=== PATIENT | female | born 1990 | race Caucasian/White ===

== ENCOUNTER 2018-10-04 13:34 | Emergency (ER) | payer BC, SELFPAY ==
[2018-10-04] MEDS ORDERED: FAMOTIDINE 20 MG/2 ML VIAL IV ONE (14:24)
[2018-10-04] MEDS ORDERED: MAGNE/ALUM HYDROXD 30 ML UCUP ONE (14:24)
[2018-10-04] MEDS ORDERED: ONDANSETRON 4 MG/2 ML VIAL ONE (14:24)
[2018-10-04] MEDS ORDERED: LIDOCAINE VISCOUS 2% SOLN 15 ML UDC ONE (14:24)
[2018-10-04] MEDS ORDERED: NA CHLORIDE 0.9% 1,000 ML ONE ×2 (14:25→15:50)
[2018-10-04 14:34] LABS: Absolute Monocytes 0.5 K/uL (0.1-1.3); Absolute Neutrophil 11.3 K/uL (1.8-8.0); Basophils % 0.3 % (0-1.3); Eosinophils % 0.3 % (0-4.4); Hematocrit 41.2 % (36.0-45.0); Lymphocytes % 14.1 % (15.3-44.8); MPV 11.5 fL (7.6-11.3); Monocytes % 3.9 % (3.3-12.3); RBC Red Blood Cell Count 4.47 M/uL (3.86-4.86)
[2018-10-04] MEDS ORDERED: FENTANYL CITR 100 MCG/2 ML ONE (14:42)
[2018-10-04] MEDS ORDERED: CEFTRIAXONE/SWI 1gm 1 GM/10 ML SYR ONE (14:43)
--- NOTE | 2018-10-04 14:49 | RAD REPORT ---
EXAM DESCRIPTION: US - Abdomen Exam Limited - 10/04/2018 2:34 pm CLINICAL HISTORY: ABD PAIN COMPARISON: Abdomen Exam Limited dated 02/24/2017 FINDINGS: The gallbladder demonstrates multiple shadowing gallstones. No pericholecystic fluid or ga llbladder wall thickening. The common bile duct is mildly prominent measuring 7 mm. The liver demonstrates no findings of intrahepatic biliary dilatation. IMPRESSION: Cholelithiasis. Mildly prominent common bile duct of 7 mm. MRCP evaluation may be of value for followup.
[2018-10-04 14:50] LABS: Albumin 3.7 g/dL (3.4-5.0); Bilirubin Direct 0.7 mg/dL (0-0.2); Bilirubin Total 1.2 mg/dL (0.2-1.0); Protein, Total 7.6 g/dL (6.4-8.2)
--- NOTE | 2018-10-04 15:16 | EDPHYS ---
Physician Documentation [facility] Name: Ángel Feliz Age: 27 yrs Sex: Female : 1990 Arrival Date: 10/04/2018 Time: 13:35 Bed 25 Private MD: Jay Harper ED Physician Jj Grant HPI: 10/04 14:17 This 27 yrs old Female presents to ER via Ambulatory with complaints of ma2 Epigastric Pain. 14:17 The patient presents with abdominal pain. Onset: The symptoms/episode began/occurred ma2 gradually, 1 day(s) ago. Associated signs and symptoms: Pertinent positives: vomiting, Pertinent negatives: anorexia, chest pain, dysuria, vomiting blood. The symptoms are described as constant. Severity of pain: At its worst the pain was severe in the emergency department the pain is unchanged. The patient has not experienced similar symptoms in the past. 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 - Social history:: Smoking status: Patient/guardian denies using tobacco, Patient/guardian denies using alcohol, street drugs, The patient lives with family. - Ebola Screening: : No symptoms or risks identified at this time. - Family history:: not pertinent. ROS: 14:17 Constitutional: Negative for fever, chills, and weight loss, Cardiovascular: Negative ma2 for chest pain, palpitations, and edema, Respiratory: Negative for shortness of breath, cough, wheezing, and pleuritic chest pain. 14:17 Abdomen/GI: Positive for abdominal pain, vomiting, Negative for constipation, abdominal distension, dysphagia, rectal bleeding. 14:17 All other systems are negative. Exam: 14:17 Constitutional: This is a well developed, well nourished patient who is awake, alert, ma2 and in no acute distress. Eyes: Pupils equal round and reactive to light, extra-ocular motions intact. Lids and lashes normal. Conjunctiva and sclera are non-icteric and not injected. Cornea within normal limits. Periorbital areas with no swelling, redness, or edema. Chest/axilla: Normal chest wall appearance and motion. Nontender with no deformity. No lesions are appreciated. Cardiovascular: Regular rate and rhythm with a normal S1 and S2. No gallops, murmurs, or rubs. Normal PMI, no JVD. No pulse deficits. Respiratory: Lungs have equal breath sounds bilaterally, clear to auscultation and percussion. No rales, rhonchi or wheezes noted. No increased work of breathing, no retractions or nasal flaring. Back: No spinal tenderness. No costovertebral tenderness. Full range of motion. Skin: Warm, dry with normal turgor. Normal color with no rashes, no lesions, and no evidence of cellulitis. MS/ Extremity: Pulses equal, no cyanosis. Neurovascular intact. Full, normal range of motion. Neuro: Awake and alert, GCS 15, oriented to person, place, time, and situation. Cranial nerves II-XII grossly intact. Motor strength 5/5 in all extremities. Sensory grossly intact. Cerebellar exam normal. Normal gait. 14:17 Abdomen/GI: Inspection: abdomen appears normal, Palpation: moderate abdominal tenderness, in the right upper quadrant, voluntary guarding, is not appreciated, involuntary guarding, is not appreciated, Liver: no appreciated palpable abnormalities. Vital Signs: 13:47 BP 89 / 54; Pulse 60; Resp 18 S; Temp 97.7(O); Pulse Ox 99% on R/A; Weight 104.33 kg aa5 (R); Height 5 ft. 3 in. (160.02 cm) (R); Pain 8/10; 14:15 BP 92 / 55; Pulse 52; Resp 18; Pulse Ox 100% on R/A; aj1 14:56 BP 88 / 57; Pulse 68; Resp 18; Pulse Ox 100% on R/A; aj1 15:23 BP 94 / 59; Pulse 60; Resp 18 S; Pulse Ox 100% on R/A; iw 15:45 BP 92 / 64; Pulse 60; Resp 18; Pulse Ox 100% ; aj1 16:15 BP 105 / 62; Pulse 85; Resp 18; Pulse Ox 100% on R/A; aj1 16:45 BP 106 / 82; Pulse 81; Resp 18; Pulse Ox 100% on R/A; aj1 17:10 BP 109 / 60; Pulse 78; Resp 18; Pulse Ox 100% on R/A; aj1 13:47 Body Mass Index 40.74 (104.33 kg, 160.02 cm) aa5 MDM: 13:49 Patient medically screened. ma2 14:17 Differential diagnosis: cholecystitis, Cholelithiasis, gastritis, gastroesophageal ma2 reflux disease. 15:13 Data reviewed: vital signs, nurses notes, lab test result(s), radiologic studies. ma2 Counseling: I had a detailed discussion with the patient and/or guardian regarding: the historical points, exam findings, and any diagnostic results supporting the discharge/admit diagnosis, the presence of at least one elevated blood pressure reading (>120/80) during this emergency department visit, the need to transfer to another facility. Response to treatment: the patient's symptoms have markedly improved after treatment. ED course: has tbili 1.2 cbd = [address] Lombardo who recommends transfer for ERCP as our gi oncall today dr. Lehman does not perform ERCP will transfer emergenctly for higher level of care . 10/04 14:08 Order name: Basic Metabolic Panel; Complete Time: 15:04 [facility] 10/04 14:08 Order name: CBC with Diff; Complete Time: 15:02 [facility] 10/04 14:08 Order name: Creatinine for Radiology; Complete Time: 15:02 mo10/04 14:08 Order name: Hepatic Function; Complete Time: 15:04 mo10/04 14:08 Order name: Lipase; Complete Time: 15:04 [facility] 10/04 17:21 Order name: Urine Dipstick--Ancillary (enter results) 10/04 14:14 Order name: US Abdomen Limited; Complete Time: 15:04 mo10/04 17:22 Order name: Urine --Ancillary (enter results) 10/04 14:08 Order name: IV Saline Lock; Complete Time: 14:31 [facility] 10/04 14:08 Order name: Labs collected and sent; Complete Time: 14:31 mo10/04 14:08 Order name: Urine Dipstick-Ancillary (obtain specimen); Complete Time: 16:47 [facility] 10/04 14:14 Order name: NPO; Complete Time: 14:31 [facility] 10/04 15:42 Order name: Urine Test (obtain specimen); Complete Time: 16:47 iw Administered Medications: 14:25 Drug: NS 0.9% 1000 ml Route: IV; Rate: 1 bolus; Site: right forearm; aj1 15:25 Follow up: IV Status: Completed infusion; IV Intake: 1000ml aj1 14:25 Drug: Pepcid 20 mg Route: IVP; Site: right forearm; aj1 15:25 Follow up: Response: No adverse reaction aj1 14:25 Drug: Zofran 4 mg Route: IVP; Site: right forearm; aj1 15:25 Follow up: Response: No adverse reaction aj1 14:42 Drug: fentaNYL (PF) 25 mcg Route: IVP; Site: right forearm; aj1 16:15 Follow up: Response: No adverse reaction; Pain is decreased aj1 14:42 Drug: Rocephin 1 grams Route: IV; Rate: calculated rate; Site: right forearm; aj1 14:45 Follow up: IV Status: Completed infusion; IV Intake: 10ml aj1 15:00 Drug: GI Cocktail without - (Maalox Suspension 30 ml, Lidocaine Liquid 2 % 15 aj1 ml) Route: PO; 15:30 Follow up: Response: No adverse reaction aj1 15:41 Drug: NS 0.9% 1000 ml Route: IV; Rate: 1 bolus; Site: right forearm; iw 17:16 Follow up: IV Status: Completed infusion; IV Intake: 1000ml aj1 17:08 Drug: Dextrose 5 % in 1/2 Normal Saline with KCl 10 mEq/L 1000 ml Route: IV; Rate: 100 aj1 ml/hr; Site: right forearm; 17:15 Not Given (Other Intervention Used): morphine 4 mg IVP once aj1 Disposition: 10/04/18 15:15 Transfer ordered to [facility]. Diagnosis is Calculus of bile duct with acute and chronic cholecystitis with obstruction. - Reason for transfer: Higher level of care. - Accepting physician is Dr. Alegria and dr. acosta. - Condition is Stable. - Problem is new. - Symptoms are unchanged. Signatures: Dispatcher [employer] EDMS Ya Quigley RN RN aj1 Huong Arambula RN RN iw Becki Hawkins RN RN aa5 Jj Grant MD MD ma2 Corrections: (The following items were deleted from the chart) 15:45 15:15 10/04/2018 15:15 Transfer ordered to [facility]. Diagnosis is ma2 Calculus of bile duct with acute and chronic cholecystitis with obstruction. Reason for transfer: Higher level of care. Accepting physician is OS. Condition is Stable. Problem is new. Symptoms are unchanged. ma2 15:54 15:45 10/04/2018 15:15 Transfer ordered to [facility]. Diagnosis is ma2 Calculus of bile duct with acute and chronic cholecystitis with obstruction. Reason for transfer: Higher level of care. Accepting physician is Dr. Alegria. Condition is Stable. Problem is new. Symptoms are unchanged. ma2 17:50 15:54 10/04/2018 15:15 Transfer ordered to [facility]. Diagnosis is aj1 Calculus of bile duct with acute and chronic cholecystitis with obstruction. Reason for transfer: Higher level of care. Accepting physician is Dr. Alegria and dr. acosta. Condition is Stable. Problem is new. Symptoms are unchanged. ma2
--- NOTE | 2018-10-04 15:16 | ER ---
Nurse's Notes [facility] Name: Ángel Feliz Age: 27 yrs Sex: Female : 1990 Arrival Date: 10/04/2018 Time: 13:35 Bed 25 Private MD: Jay Harper Diagnosis: Calculus of bile duct with acute and chronic cholecystitis with obstruction Presentation: 10/04 13:45 Presenting complaint: Patient states: RUQ pain x 2-3 days. Pt states "I am having a aa5 gallbladder attack". Pt reports vomiting. Pt clammy in triage. Transition of care: patient was not received from another setting of care. Onset of symptoms was September 2018. Risk Assessment: Do you want to hurt yourself or someone else? Patient reports no desire to harm self or others. Initial Sepsis Screen: Does the patient meet any 2 criteria? No. Patient's initial sepsis screen is negative. Does the patient have a suspected source of infection? No. Patient's initial sepsis screen is negative. Care prior to arrival: None. 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 - Social history:: Smoking status: Patient/guardian denies using tobacco, Patient/guardian denies using alcohol, street drugs, The patient lives with family. - Ebola Screening: : No symptoms or risks identified at this time. - Family history:: not pertinent. Screenin:50 Abuse screen: Denies threats or abuse. Denies injuries from another. Nutritional aj1 screening: No deficits noted. Tuberculosis screening: No symptoms or risk factors identified. Assessment: 13:50 General: Appears uncomfortable, ill, Behavior is cooperative, anxious, restless. Pain: aj1 Complains of pain in epigastric area and right upper quadrant Pain currently is 10 out of 10 on a pain scale. Neuro: Level of Consciousness is awake, alert, obeys commands, Oriented to person, place, time, situation. Cardiovascular: Patient's skin is warm and dry. Respiratory: Airway is patent Respiratory effort is even, unlabored, Respiratory pattern is regular, symmetrical. GI: Abdomen is non-distended, Bowel sounds present X 4 quads. : No signs and/or symptoms were reported regarding the genitourinary system. EENT: No signs and/or symptoms were reported regarding the EENT system. Derm: Skin is diaphoretic, Skin is pale, Skin temperature is cool. Musculoskeletal: No signs and/or symptoms reported regarding the musculoskeletal system. Circulation, motion, and sensation intact. 14:45 Reassessment: Patient appears in no apparent distress at this time. Patient and/or aj1 family updated on plan of care and expected duration. Pain level reassessed. Patient is alert, oriented x 3, equal unlabored respirations, skin warm/dry/pink. Patient states that she has gotten good pain relief with Fentanyl. 15:45 Reassessment: Patient and/or family updated on plan of care and expected duration. Pain aj1 level reassessed. General: Appears in no apparent distress. comfortable, Behavior is calm, cooperative, appropriate for age. Neuro: Level of Consciousness is awake, alert, obeys commands. Cardiovascular: Patient's skin is warm and dry. Respiratory: Airway is patent Respiratory effort is even, unlabored, Respiratory pattern is regular, symmetrical. GI: Abdomen is non-distended. Derm: Skin is dry, Skin is pink, warm \\T\\ dry. Skin temperature is warm. Musculoskeletal: No signs and/or symptoms reported regarding the musculoskeletal system. Circulation, motion, and sensation intact. 16:45 Reassessment: Patient appears in no apparent distress at this time. No changes from aj1 previously documented assessment. Patient and/or family updated on plan of care and expected duration. Pain level reassessed. Patient is alert, oriented x 3, equal unlabored respirations, skin warm/dry/pink. Vital Signs: 13:47 BP 89 / 54; Pulse 60; Resp 18 S; Temp 97.7(O); Pulse Ox 99% on R/A; Weight 104.33 kg aa5 (R); Height 5 ft. 3 in. (160.02 cm) (R); Pain 8/10; 14:15 BP 92 / 55; Pulse 52; Resp 18; Pulse Ox 100% on R/A; aj1 14:56 BP 88 / 57; Pulse 68; Resp 18; Pulse Ox 100% on R/A; aj1 15:23 BP 94 / 59; Pulse 60; Resp 18 S; Pulse Ox 100% on R/A; iw 15:45 BP 92 / 64; Pulse 60; Resp 18; Pulse Ox 100% ; aj1 16:15 BP 105 / 62; Pulse 85; Resp 18; Pulse Ox 100% on R/A; aj1 16:45 BP 106 / 82; Pulse 81; Resp 18; Pulse Ox 100% on R/A; aj1 17:10 BP 109 / 60; Pulse 78; Resp 18; Pulse Ox 100% on R/A; aj1 13:47 Body Mass Index 40.74 (104.33 kg, 160.02 cm) aa5 ED Course: 13:35 Patient arrived in ED. as 13:35 Jay Harper MD is Private Physician. as 13:45 Arm band placed on. aa5 13:46 Triage completed. aa5 13:49 Jj rGant MD is Attending Physician. ma2 13:50 Patient has correct armband on for positive identification. Bed in low position. Call aj1 light in reach. Side rails up X 1. 13:50 No provider procedures requiring assistance completed. Inserted saline lock: 22 gauge aj1 in right forearm, using aseptic technique. 13:51 Ya Quigley, RICHARD is Primary Nurse. aj1 14:34 US Abdomen Limited In Process Unspecified. EDMS 17:49 Patient transferred, IV remains in place. aj1 Administered Medications: 14:25 Drug: NS 0.9% 1000 ml Route: IV; Rate: 1 bolus; Site: right forearm; aj1 15:25 Follow up: IV Status: Completed infusion; IV Intake: 1000ml aj1 14:25 Drug: Pepcid 20 mg Route: IVP; Site: right forearm; aj1 15:25 Follow up: Response: No adverse reaction aj1 14:25 Drug: Zofran 4 mg Route: IVP; Site: right forearm; aj1 15:25 Follow up: Response: No adverse reaction aj1 14:42 Drug: fentaNYL (PF) 25 mcg Route: IVP; Site: right forearm; aj1 16:15 Follow up: Response: No adverse reaction; Pain is decreased aj1 14:42 Drug: Rocephin 1 grams Route: IV; Rate: calculated rate; Site: right forearm; aj1 14:45 Follow up: IV Status: Completed infusion; IV Intake: 10ml aj1 15:00 Drug: GI Cocktail without - (Maalox Suspension 30 ml, Lidocaine Liquid 2 % 15 aj1 ml) Route: PO; 15:30 Follow up: Response: No adverse reaction aj1 15:41 Drug: NS 0.9% 1000 ml Route: IV; Rate: 1 bolus; Site: right forearm; iw 17:16 Follow up: IV Status: Completed infusion; IV Intake: 1000ml aj1 17:08 Drug: Dextrose 5 % in 1/2 Normal Saline with KCl 10 mEq/L 1000 ml Route: IV; Rate: 100 aj1 ml/hr; Site: right forearm; 17:15 Not Given (Other Intervention Used): morphine 4 mg IVP once aj1 Intake: 14:45 IV: 10ml; Total: 10ml. aj1 15:25 IV: 1000ml; Total: 1010ml. aj1 17:16 IV: 1000ml; Total: 2010ml. aj1 Outcome: 15:15 ER care complete, transfer ordered by . ma2 17:49 Transferred by ground EMS to [facility]. aj1 17:49 Condition: stable 17:49 Discharge instructions given to patient, Instructed on the need for transfer, Demonstrated understanding of instructions. 17:50 Patient left the ED. aj1 Signatures: Dispatcher [employer] EDMS Ya Quigley RN RN aj1 Marly Hurley as Huong Arambula RN RN Becki Hawkins RN RN aa5 Jj Grant MD MD ma2 Corrections: (The following items were deleted from the chart) 13:48 13:45 Presenting complaint: Patient states: RUQ pain x 2-3 days. Pt states "I am having aa5 a gallbladder attack". Pt reports vomiting. aa5 13:48 13:45 Acuity: SAAD 3 aa5 aa5 13:48 13:47 Pulse 60bpm; Resp 18bpm; Spontaneous; Pulse Ox 99% RA; Temp 97.7F Oral; 104.33 kg aa5 Reported; Height 5 ft. 3 in. Reported; BMI: 40.7; Pain 8/10; aa5 13:49 13:47 Pulse 60bpm; Resp 18bpm; Spontaneous; Pulse Ox 99% RA; Temp 97.7F Oral; 104.33 kg aa5 Reported; Height 5 ft. 3 in. Reported; BMI: 40.7; Pain 8/10; aa5
[2018-10-04] MEDS ORDERED: D5.45NS W/KCL 20MEQ 0 ML IV ONE (16:12)
[2018-10-04] MEDS ORDERED: D5 0.45 NS 1,000 ML with POTASSIUM CL 10 MEQ IV SCH ×2 (17:00)
[2018-10-04 17:53] LABS: Urine Blood 2+ (NEG); Urine Glucose NEGATIVE (NEG); Urine Protein TRACE (NEG); Urine Specific Gravity >1.030 (1.005-1.030); Urine pH 5.5 (5.0-7.0)
== END 2018-10-04 17:50 | disposition short-term general hospital (02) ==
LOC: ER 13:34
DX: K80.45 Calculus of bile duct with chronic cholecystitis with obstruction (principal)
CPT/HCPCS: 36415; 76705; 80048; 80076; 81003; 81025; 83690; 85025; 96361; 96374; 96375; 99285; J0696; J2405; J3010; J7030